=== PATIENT | female | born 1985 | race Asian ===

== ENCOUNTER 2025-01-28 13:59 | Emergency (ER) | payer OTHER ==
[~2025-01-28] VITALS: Ht 167.6 cm; Wt 77.3 kg
[2025-01-28 14:10] VITALS: BP 133/91; PULSE 116; RESP 16; TEMP 97.7; O2SAT 98
== END 2025-01-28 17:44 | disposition left against medical advice (07) ==
LOC: EMS 14:05
DX: S05.92XA Unspecified injury of left eye and orbit, initial encounter (principal); Z53.21 Procedure and treatment not carried out due to patient leaving prior to being seen by health care provider; X58.XXXA Exposure to other specified factors, initial encounter; Y93.89 Activity, other specified; Y92.89 Other specified places as the place of occurrence of the external cause; Y99.8 Other external cause status